=== PATIENT | female | born 1980 | race Caucasian/White ===

== ENCOUNTER 2019-05-30 22:42 | Inpatient (IN) | payer OTHER ==
[2019-05-31] MEDS: NOREPINEPHRINE 4 MG in SODIUM CHLORIDE 0.9% 250 ML IV SCH ×2 (00:48→16:17)
[2019-05-31] MEDS ORDERED: NALOXONE 0.4 MG/ML 1 ML VIAL IV PRN (00:49)
[2019-05-31 00:57] LABS: Glucose,Whole Blood 145 mg/dL (75-99)
[2019-05-31] MEDS: SODIUM CHLORIDE 0.9% 1,000 ML IV SCH ×4 (01:24→16:16)
[2019-05-31 01:32] VITALS: BMI 41.2
--- NOTE | 2019-05-31 01:59 | P.HPIM ---
History of Present Illness H&P Date: 05/31/19 Patient is a 39-year-old female with a past medical history of hypertension, and hyperlipidemia who was transferred from [facility] where she had presented earlier today with complaints of dizziness and syncopal episode. The patient reports that over the past few weeks, she has been feeling somewhat worse than her baseline and that over the past few days she has experienced multiple episodes of lightheadedness and jeff-syncope. She did notice some congestion w/ post-nasal drip and subsequent sore throat during this time. Earlier today however she was at her home sitting on her couch when she suddenly began feeling ill. She became nauseas (denied vomiting), got up to walk to the restroom when she became light-headed, held on to a nearby wall, and subsequently lost consciousness. The episode was witnessed by her mother who had told the patient that she was down for roughly 5-10 seconds. The patient denied any urinary or bowel incontinence, abnormal shaking, or tongue bites. The patient did however endorse some neck pain which had resolved prior to arrival at [facility]. The patient also denied recent urinary complaints. She also denied chest pain, SOB, palpitations, abdominal pain, diarrhea, vomiting, or headache. The patient also states that she is currently menstruating and that she had asked a tech at [facility] to remove a Tampon that she had inserted 2 hours prior. She also denied any change in her diet or oral intake recently. The patient's mother contacted EMS following her syncopal episode and the patient was taken to [facility]. The patient underwent an extensive evaluation at [facility] w/ CT head showing possible acute L sphenoid sinusitis, though otherwise unremarkable. CXR was unremarkable. Laboratory evaluation revealed a WBC count of 5, Hgb 11.3, plt 218, Na 138, K 3.8, BUN 19, Cr 1.84, glucose 140, Mg 1.2, Trop < 0.03, w/ Lactate 2.1. Rapid strep and Influenza were both negative. The patient was initially noted to be hypotensive due to dehydration w/ YONIS and was admitted to the medicine service. The patient however then developed a fever of 102.4 with persistent hypotension and tachycardia. The patient was subsequently transferred to the MICU at [facility]. I was contacted by Dr Estevez, the patient's PMD along with Dr Armenta, who requested to transfer the patient to [facility] ED. The patient was given Ceftriaxone 2g, Vancomycin, along with Dexamethasone at [facility] for concerns of meningitis. She also received 5 L of NS along with supplementation of potassium and magnesium. At time of the interview, the patient noted feeling that she is essentially back to her baseline. Review of Systems Pertinent positives and negatives as discussed in HPI, a complete review of systems was performed and all other systems are negative. Medications and Allergies Home Medications Medication Instructions Recorded Confirmed Type Atorvastatin Calcium [Lipitor] 20 PO DAILY 05/31/19 History Loratadine 10 PO DAILY 05/31/19 History NIFEdipine [NIFEdipine ER] 30 mg PO 05/31/19 History Phentermine HCl 18.7 PO DAILY 05/31/19 History Triamterene/Hydrochlorothiazid PO DAILY 05/31/19 History [Triamterene-Hctz 37.5-25 mg Tb] Allergies Allergy/AdvReac Type Severity Reaction Status Date / Time No Known Allergies Allergy Verified 05/31/19 00:36 Physical Exam Vitals: Intake and Output 05/30/19 05/30/19 05/31/19 14:59 22:59 06:59 Other: Weight 105.5 kg General: non toxic, no distress, appears at stated age, obese Derm: no unusual rashes/lesions no unusual ecchymoses, warm, dry Head: atraumatic, normocephalic, symmetric Eyes: EOMI, no lid lag, anicteric sclera, pupils equal round reactive to light ENT: Nose and ears atraumatic, no thrush, no pharyngeal erythema Neck: No thyromegaly, no cervical lymphadenopathy, trachea midline, supple Mouth: no lip lesion, mucus membranes dry Cardiovascular: S1S2 reg, tachycardic, no murmur, positive posterior tibial pulse bilateral, no edema, capillary refill less than 2 seconds Lungs: CTA bilateral, no rhonchi, no rales , no accessory muscle use Abdominal: soft, obese, nontender to palpation, no guarding, no appreciable organomegaly, normal bowel sounds Ext: no gross muscle atrophy, muscle strength 5 out of 5 in all 4 extremities grossly, no contractures, Neuro: CN II-XI grossly intact, light touch intact all 4 extremities, finger to nose within normal limits, Psych: Alert, oriented, appropriate affect Results Labs: Abnormal Lab Results - Last 24 Hours (Table) 05/31/19 Range/Units 00:45 POC Glucose (mg/dL) 145 H (75-99) mg/dL Assessment and Plan Plan: Septic shock, w/ no clear source of infection at this time -C/w MICU level of care -Continue with IV pressor support with Levophed -Continue with normal saline 200 mL an hour -Follow up blood cultures -Consider LP in am -Consider ID consult -Will c/w empiric abxs for now, including Vancomycin and Zosyn YONIS, likely secondary to septic shock -C/w IVFs for now -Monitor BMP Hypokalemia and Hypomagnasemia -Replace and Monitor Chronic conditions: HTN, HLD -Hold antihypertensives in setting of septic shock -C/w home meds DVT prophylaxis -Heparin The patient is admitted with an anticipated greater than 2 midnight stay for evaluation of septic shock. CODE STATUS: Full Code Discussed with: Patient Anticipated discharge date: 06/04/[address]: Home A total of 60 minutes was spent on the care of this complex patient more than 50% of the time was spent in counseling and care coordination.
[2019-05-31] MEDS ORDERED: VANCOMYCIN IV PER PHARMACY 1 EACH MISC MISCELLANE PRN (02:00)
[2019-05-31 02:24] LABS: Amorphous Sediment,Urine Occasional /hpf; Appearance,Urine Cloudy (Clear); Bacteria,Urine Rare /hpf; Bilirubin,Urine Negative (Negative); Blood,Urine Negative (Negative); Color,Urine Yellow; Glucose,Urine (UA) Negative (Negative); Hyaline Casts,Urine 33 /lpf (0-2); Ketones,Urine Negative (Negative); Leukocyte Esterase,Urine Small (Negative); Mucus,Urine Rare /hpf; Nitrite,Urine Negative (Negative); Protein,Urine Trace (Negative); Specific Gravity,Urine 1.012 (1.001-1.035); Squamous Epithelial Cell,Urine 2 /hpf (0-4); Urobilinogen,Urine <2.0 mg/dL (<2.0)
[2019-05-31] MEDS: PIPERACILLIN-TAZOBACTAM 3.375 GM in SODIUM CHLORIDE 0.9% 100 ML IVPB SCH ×3 (03:32→18:43)
[2019-05-31] MEDS: ACETAMINOPHEN TAB 325 MG TAB PO PRN ×2 (03:33→11:36)
[2019-05-31] MEDS ORDERED: VANCOMYCIN 1,750 MG in SODIUM CHLORIDE 0.9% 500 ML 500 ML IVPB ONE (04:00)
[2019-05-31 05:27] LABS: Calcium 7.6 mg/dL (8.4-10.2); Magnesium 1.7 mg/dL (1.6-2.3); Phosphorus 3.6 mg/dL (2.5-4.5); Potassium 4.4 mmol/L (3.5-5.1)
[2019-05-31 06:05] LABS: HCT 29.1 % (34.0-46.0); HGB 10.1 gm/dL (11.4-16.0); MCH 32.5 pg (25.0-35.0); MCHC 34.9 g/dL (31.0-37.0); MCV 93.2 fL (80.0-100.0); Mean Platelet Volume 8.5; Platelet Count 200 k/uL (150-450); RBC 3.12 m/uL (3.80-5.40); RDW 14.1 % (11.5-15.5); WBC 28.6 k/uL (3.8-10.6)
[2019-05-31] MEDS ORDERED: Magnesium Replacement Protocol 1 EACH MISC MISCELLANE PRN (06:18)
[2019-05-31] MEDS: MAGNESIUM SULFATE-D5W PMX 1 GM in DEXTROSE/WATER 1 100ML.BAG IVPB SCH ×2 (07:01→08:53)
[2019-05-31] MEDS: PANTOPRAZOLE 40 MG TABLET PO SCH (07:01)
[2019-05-31 07:03] LABS: Band Neutrophils % 29 %; Eosinophils # (M) 0.29 k/uL (0-0.7); Lymphocytes # (M) 0.57 k/uL (1.0-4.8); Monocytes # (M) 0.86 k/uL (0-1.0); Neutrophils % (M) 66 %; Nucleated Red Blood Cells 0 /100 WBC (0-0); Total Cells Counted 200
[2019-05-31 07:04] LABS: Anisocytosis (M) Present; Poikilocytosis (M) Present
--- NOTE | 2019-05-31 07:51 | XR ---
EXAMINATION TYPE: XR chest 1V DATE OF EXAM: 05/31/2019 COMPARISON: NONE HISTORY: Shortness of breath TECHNIQUE: Single frontal view of the chest is obtained. FINDINGS: There are overlying cardiac leads. Patient is rotated. There is no focal air space opacity, pleural effusion, or pneumothorax seen. The cardiac silhouette size is within normal limits. The osseous structures are intact. IMPRESSION: No acute process.
[2019-05-31] MEDS: HEPARIN SODIUM,PORCINE 5,000 UNIT/ML 1 ML VIAL SQ SCH ×2 (08:53→16:16)
--- NOTE | 2019-05-31 09:33 | CONS ---
CONSULTATION PULMONARY/CRITICAL CARE CONSULTATION: DATE OF CONSULTATION: May 31, 2019 This is a 39-year-old female who typically sees Dr. Estevez. She has a history of hypertension, hyperlipidemia, obesity, and prediabetes. The patient apparently started not feeling well yesterday. She apparently got up to use the bathroom and felt dizzy and lightheaded. She apparently had a brief episode of unconsciousness/syncope. She felt like she had to use the bathroom, but in the end did not need to use the bathroom. She also apparently developed a fever. She had been having some nasal congestion and drainage. No urinary complaints. No diarrhea. She also complained of a bit of a sore throat and possible tonsillitis/strep pharyngitis. She asked for some antibiotics but never actually started them. Because of the constellation of symptoms including the headache, the fever, sore throat, nasal congestion, nasal drainage, etc., she ended up in the emergency room over at [facility]. Apparently Dr. Armenta was called. Dr. Armenta recommended transfer to our ICU. He did call me last night and we discussed the case. The patient was accepted by the [facility]. Dr. Murphy actually saw the patient last night. His input was appreciated and H and P is already in the chart. She did have a head CT which showed nothing acute. She did have a left sphenoid sinusitis. Chest x-ray was normal. Apparently, her rapid strep screen was negative. Her influenza studies were negative as well. She was a bit hypotensive and she got IV fluids. She also initially got vancomycin and ceftriaxone. She got Decadron as well. She is resting comfortably in our ICU. She is feeling much better. She is on room air. Her IV is 0.9 at 20 mL an hour. She is getting Levophed at 3 mcg/minute. She was adequately fluid resuscitated there. PAST MEDICAL HISTORY: Her past medical history includes hypertension, hyperlipidemia and prediabetes. HOME MEDICATIONS: Her home medications include Tylenol, triamterene/hydrochlorothiazide, phentermine hydrochloride, loratadine, and Lipitor. SOCIAL HISTORY: Negative for tobacco use. ALLERGIES: She has no known allergies. FAMILY HISTORY: Noncontributory. Mother and father are healthy. OCCUPATIONAL HISTORY: Noncontributory. She apparently had been completing her menses. She had a tampon in place. She apparently did ask the nursing staff at [facility] to help her remove it and it was removed. REVIEW OF SYSTEMS: CONSTITUTIONAL: Weakness, lightheadedness, dizziness. NEUROLOGIC: Brief episode of syncope. HEENT: Nasal congestion, drainage, sore throat, swollen tonsils. CARDIOVASCULAR: Negative. PULMONARY: Negative. GI: Negative. : Negative. RHEUMATOLOGIC: Negative. IMMUNOLOGIC: Negative. ENDOCRINOLOGIC: Negative. DERMATOLOGIC: Negative. PHYSICAL EXAMINATION: VITAL SIGNS: Vital signs are reviewed. Temperature is 97.7, heart rate 87, respiratory rate 12, blood pressure 96/64, mean 74, saturation 97%. GENERAL: She is sitting up in bed. No acute distress. No respiratory distress. No headache. No neck stiffness. No photophobia. HEENT: Examination is grossly unremarkable. Mucous membranes are moist. Posterior oropharynx is normal, but her tonsils are quite enlarged. The left tonsil may have a bit of exudate on it. NECK: Supple. Full range of motion. No adenopathy or thyromegaly. Neck veins are flat. CARDIOVASCULAR: Examination reveals regular rhythm and rate. Heart rate mid 80s. S1, S2 normal. No murmur. LUNGS: Are clear. Breath sounds equal. ABDOMEN: Obese. Bowel sounds are heard. EXTREMITIES: Are intact. No cyanosis, clubbing, or edema. SKIN: Without rash. NEUROLOGIC: Examination is nonfocal. Microbiologic data is pending or negative. White count 28.6, hemoglobin 10.1, hematocrit 29.1, platelet count 200,000. Sodium and potassium were 139 and 4.4. Chloride 108, CO2 is 20. Anion gap is 11. BUN and creatinine were 22 and 1.74. This is consistent with a non-anion gap metabolic acidosis and it is probably related to the mild acute kidney injury/renal dysfunction. The rest of the labs look okay. Urine is yellow and cloudy. Trace protein, small positive leukocyte esterase, 10 WBCs, rare WBC clumps and there are some rare bacteria. This could reflect an evolving urinary tract infection. Chest x-ray was normal. MEDICATIONS: Current medications are reviewed. She is on Tylenol, subcu heparin, magnesium replacement, Narcan, a small amount of Levophed at 3 mcg/minute, Protonix, Zosyn, vancomycin, and her saline IV. ASSESSMENT: 1. Mild febrile illness with possible sepsis of unclear etiology. Sources could include left sphenoid sinusitis, pharyngitis/tonsillitis, urinary tract infection, or viral syndrome. Doubt meningitis. 2. History of hyperlipidemia. 3. Hypertension. 4. Prediabetes. 5. Obesity. PLAN: The patient states that she started not feeling well after she started the phentermine hydrochloride which is Adipex-P. That will not be given to her here in the hospital. We will see if we cannot wean her off the norepinephrine. Currently, she is on good antibiotics. I did explain to her that we may or may not find a source of infection. Additional recommendations and suggestions are forthcoming. The tampon was removed. That is a good thing. We will continue to follow closely. N.p.o. for now. She does have GI and DVT prophylaxis. MMODL / IJN: [id number] /
--- NOTE | 2019-05-31 11:56 | ECHOF ---
Referral Reason:syncope MEASUREMENTS -------- HEIGHT: 160.0 cm WEIGHT: 105.2 kg BP: RVIDd: 3.3 cm (< 3.3) IVSd: 1.1 cm (0.6 - 1.1) LVIDd: 3.6 cm (3.9 - 5.3) LVPWd: 1.4 cm (0.6 - 1.1) IVSs: 1.3 cm LVIDs: 2.5 cm LVPWs: 1.5 cm LA Diam: 3.1 cm (2.7 - 3.8) LAESV Index (A-L): 18.19 ml/m Ao Diam: 2.6 cm (2.0 - 3.7) AV Cusp: 1.6 cm (1.5 - 2.6) LA Diam: 3.2 cm (2.7 - 3.8) MV EXCURSION: 14.924 mm (> 18.000) MV EF SLOPE: 73 mm/s (70 - 150) EPSS: 0.4 cm MV E Vito: 0.84 m/s MV DecT: 118 ms MV A Vito: 0.91 m/s MV E/A Ratio: 0.92 RAP: 5.00 mmHg RVSP: 25.10 mmHg FINDINGS -------- Sinus rhythm. This was a technically adequate study. LV size, wall thickness and systolic function are normal, with an EF greater than 55%. The left salena tricular size is normal. The diastolic filling pattern is normal for the age of the patient 6.79. The right ventricle is normal in size. Normal LA size by volume 22+/-6 ml/m2. The right atrial size is normal. The aortic valve is trileaflet, and appears structurally normal. No aortic stenosis or regurgitation. The mitral valve is normal. Mild mitral regurgitation is present. The tricuspid valve appears structurally normal. Mild tricuspid regurgitation present. There is n o evidence of pulmonary hypertension. The right ventricular systolic pressure, as measured by Doppl er, is 25.10mmHg. There is no pulmonic regurgitation present. The aortic root size is normal. There is no pericardial effusion. CONCLUSIONS -------- 1. Sinus rhythm. 2. This was a technically adequate study. 3. LV size, wall thickness and systolic function are normal, with an EF greater than 55%. 4. The left ventricular size is normal. 5. The diastolic filling pattern is normal for the age of the patient 6.79 6. Normal LA size by volume 22+/-6 ml/m2. 7. The aortic valve is trileaflet, and appears structurally normal. No aortic stenosis or regurgitati on. 8. Mild mitral regurgitation is present. 9. Mild tricuspid regurgitation present. 10. There is no evidence of pulmonary hypertension. 11. There is no pulmonic regurgitation present. 12. The aortic root size is normal. 13. There is no pericardial effusion. HEAD PUMPER: Torrie Garcia RDCS
--- NOTE | 2019-05-31 18:11 | P.PN ---
Progress Note - Text Progress Note Date: 05/31/19 (delayed charting patient seen at 0915) Hospitalist Interval Note Patient seen and examined at bedside. Complains of a sore throat, states that she gets strep throat at least 1-2 times a year and this feels similar. Also having some right-sided facial pain and fullness. Denies any neck pain, headache, changes in vision, photophobia or phonophobia. No chest pain or shortness of breath. No back pain. Vital signs reviewed General: non toxic, no distress, appears at stated age Derm: warm, dry Head: atraumatic, normocephalic, symmetric Eyes: EOMI, no lid lag, anicteric sclera Mouth: no lip lesion, mucus membranes moist Cardiovascular: S1S2 reg, no murmur, positive posterior tibial pulse bilateral, Lungs: CTA bilateral, no rhonchi, no rales , no accessory muscle use Abdominal: soft, nontender to palpation, no guarding, no appreciable organomegaly Ext: no gross muscle atrophy, no edema, no contractures Neuro: CN II-XI grossly intact, no focal neuro deficits, Negative Kernig's, negative Brudzinski's Psych: Alert, oriented, appropriate affect Assessment/Plan: Septic shock, no clear source of infection - low clinical suspicion for meningitis - repeat rapdi strep and throat culture - wean levo as able - follow BC - Continue with zosyn YONIS Hypokalemia Hypomagnesemia HTN HLD This is an update note for patient , for full note on 05/31 see H and P. There is no charge associated with this note.
[2019-05-31] MEDS: VANCOMYCIN 1,750 MG in SODIUM CHLORIDE 0.9% 500 ML 500 ML IVPB SCH (18:43)
[2019-06-01] MEDS: ACETAMINOPHEN TAB 325 MG TAB PO PRN ×3 (00:03→19:23)
[2019-06-01] MEDS: HEPARIN SODIUM,PORCINE 5,000 UNIT/ML 1 ML VIAL SQ SCH ×3 (00:04→15:12)
[2019-06-01] MEDS: SODIUM CHLORIDE 0.9% 1,000 ML IV SCH ×5 (00:04→17:01)
[2019-06-01] MEDS: PIPERACILLIN-TAZOBACTAM 3.375 GM in SODIUM CHLORIDE 0.9% 100 ML IVPB SCH ×3 (04:07→20:36)
[2019-06-01 05:30] LABS: Basophils % (A) 0 %; Eosinophils # (A) 0.4 k/uL (0-0.7); Eosinophils % (A) 2 %; HCT 28.6 % (34.0-46.0); HGB 9.5 gm/dL (11.4-16.0); Lymphocytes # (A) 1.4 k/uL (1.0-4.8); Lymphocytes % (A) 8 %; MCHC 33.3 g/dL (31.0-37.0); MCV 93.1 fL (80.0-100.0); Mean Platelet Volume 8.1; Monocytes # (A) 0.5 k/uL (0-1.0); Monocytes % (A) 3 %; Neutrophils # (A) 16.4 k/uL (1.3-7.7); Neutrophils % (A) 87 %; Platelet Count 192 k/uL (150-450); RBC 3.07 m/uL (3.80-5.40); RDW 13.7 % (11.5-15.5); WBC 18.9 k/uL (3.8-10.6)
[2019-06-01 05:47] LABS: Calcium 7.6 mg/dL (8.4-10.2); Magnesium 2.1 mg/dL (1.6-2.3); Potassium 4.3 mmol/L (3.5-5.1)
--- NOTE | 2019-06-01 08:04 | P.PN ---
Subjective Progress Note Date: 06/01/19 Principal diagnosis: Febrile illness of unclear etiology. This is a very pleasant 39-year-old female patient with history of hyperlipidemia, hypertension, prediabetes. She had developed fever weakness and a syncopal episode and was brought here to the emergency room for the same. She was admitted to the intensive care unit [facility] from [facility] emergency room. Computed tomography scan of the brain was negative. She did have a left sphenoid sinusitis. Chest x-ray was clear. Rapid strep screen was negative. Influenza screen was negative. She did have fluid resuscitation for hypotension. She was initiated on vancomycin and ceftriaxone. She is seen a gain today in follow-up in the ICU. She is awake and alert in no acute distress. No shortness of breath, cough or congestion. She is on room air. She is still on norepinephrine at 2 mcg/m. She has 0.9 normal saline at 200 ML's per hour. She is now on vancomycin and Zosyn. He is feeling a bit better today as compared to yesterday. Throat culture is pending. White count 18.9. Hemoglobin 9.5. Creatinine 1.19. Heparin subcu for DVT prophylaxis. Echocardiogram did not reveal any significant abnormalities. No evidence of vegetation. Objective - Vital Signs Vital signs: Vital Signs Temp 98.9 F 06/01/19 04:00 Pulse 87 06/01/19 07:00 Resp 19 06/01/19 07:00 BP 102/63 06/01/19 07:00 Pulse Ox 92 L 06/01/19 07:00 Intake & Output 05/31/19 06/01/19 06/01/19 18:59 06:59 18:59 Intake Total 2804.743 2909 339.422 Output Total 2004 2310 200 Balance 799.743 599 139.422 Weight 107.8 kg Intake: IV 2625 2909 225 Magnesium Sulfate-D5w Pmx 200 1 gm In Dextrose/Water 1 100ml.bag @ 100 mls/hr IVPB Q1H JANAE Rx#: [id number] Piperacillin-Tazobactam 3 25 175 25 .375 gm In Sodium Chloride 0.9% 100 ml @ 25 mls/hr IVPB Q8H JANAE Rx#: [id number] Sodium Chloride 0.9% 1, 2400 2400 200 000 ml @ 200 mls/hr IV . Q5H JANAE Rx#:[id number] Vancomycin 1,750 mg In 334 Sodium Chloride 0.9% 500 ml 500 ml @ 167 mls/hr IVPB Q24H JANAE Rx#: [id number] Intake, IV Titration 179.743 114.422 Amount Norepinephrine 4 mg In 179.743 114.422 Sodium Chloride 0.9% 250 ml @ 0.05 MCG/KG/MIN 20. 098 mls/hr IV .[id number] JANAE Rx#:[id number] Output: Urine 2004 2310 200 Other: Voiding Method Indwelling Catheter Indwelling Catheter - Exam GENERAL EXAM: Alert, pleasant 39-year-old female patient, comfortable in no apparent distress on room air. HEAD: Normocephalic. EYES: Normal reaction of pupils, equal size. NOSE: Clear with pink turbinates. THROAT: Erythema. Large tonsils, exudate on the left. NECK: No masses, no JVD. CHEST: No chest wall deformity. LUNGS: Equal air entry with no crackles, wheeze, rhonchi or dullness. CVS: S1 and S2 normal with no audible murmur, regular rhythm. ABDOMEN: No hepatosplenomegaly, normal bowel sounds, no guarding or rigidity. SPINE: No scoliosis or deformity SKIN: No rashes CENTRAL NERVOUS SYSTEM: No focal deficits, tone is normal in all 4 extremities. EXTREMITIES: There is no peripheral edema. No clubbing, no cyanosis. Peripheral pulses are intact. - Labs CBC & Chem 7: 06/01/19 05:14 06/01/19 05:14 Labs: Abnormal Lab Results - Last 24 Hours (Table) 06/01/19 06/01/19 Range/Units 05:14 05:14 WBC 18.9 H (3.8-10.6) k/uL RBC 3.07 L (3.80-5.40) m/uL Hgb 9.5 L (11.4-16.0) gm/dL Hct 28.6 L (34.0-46.0) % Neutrophils # 16.4 H (1.3-7.7) k/uL Chloride 112 H (98-107) mmol/L Creatinine 1.19 H (0.52-1.04) mg/dL Calcium 7.6 L (8.4-10.2) mg/dL Phosphorus 2.0 L (2.5-4.5) mg/dL Microbiology - Last 24 Hours (Table) 05/31/19 09:50 Throat Culture - Preliminary Throat 05/31/19 09:50 Group A Strep Throat Culture - Preliminary Throat Assessment and Plan Assessment: Impression: #1 Febrile illness with possible sepsis of unclear etiology. Within the differential include left sphenoid sinusitis, pharyngitis/tonsillitis, urinary tract infection or viral syndrome. Doubt meningitis. #2 Hypotension requiring norepinephrine and fluid resuscitation secondary to above. #3 Hyperlipidemia. #4 History of hypertension. #5 Prediabetes. Plan: The patient was seen and evaluated by Dr. Zarate. She is improved today as compared to yesterday. We'll continue with norepinephrine as needed to maintain mean arterial pressure 65 or greater. Continue vancomycin and Zosyn. Blood cultures pending from [facility]. Throat cultures pending. Continue with fluid resuscitation at 0.9 normal saline at 200 ML's per hour. Continue to monitor her here closely in the intensive care unit for now. We'll continue to follow make further recommendations based on her clinical status. I, the cosigning physician, performed a history & physical examination of the patient. Lungs sounds are clear. Maintaining good O2 saturations in the 90s on room air. I discussed the assessment and plan of care with my nurse practitioner, Kelly Ray. I attest to the above note as dictated by her.
[2019-06-01] MEDS: PANTOPRAZOLE 40 MG TABLET PO SCH (08:14)
--- NOTE | 2019-06-01 09:38 | P.PN ---
Subjective Progress Note Date: 06/01/19 Principal diagnosis: sore throat Patient is a 39-year-old female with a past medical history of hypertension, dyslipidemia, multiple prior strep throat infections, and ALLERGIC rhinitis who initially presented to [facility] for dizziness syncopal episode. She been having multiple presyncopal episodes over several days associated with postnasal drip and sore throat. At [facility] she underwent an evaluation. CT of the head showed left sphenoid sinusitis, chest x-ray unremarkable, rapid strep negative, influenza negative. Laboratory evaluation showed an elevated white blood cell count, low hemoglobin 11.3, elevated creatinine at 1.84, and low magnesium at 1.2. She also had a mildly elevated lactic acid at 2.1. She was found to be hypotensive and dehydrated with acute kidney injury. She was started on fluids and admitted to the medicine service. After admission she developed a fever of 102.4 with persistent hypotension and tachycardia. Due to her decompensation Dr. Armenta was contacted who recommended transfer to the ICU here at [facility]. She had been given 2 g of ceftriaxone, vancomycin, and dexamethasone at [facility] for concerns of meningitis due to pain. She received a total of 5 L of normal saline along with magnesium and potassium supplementation. On arrival here she was started on norepinephrine. Repeat rapid strep was done which was negative and throat cultures were obtained. Antibiotics were broadened to Zosyn and vancomycin. Clinical signs and symptoms were not consistent with meningitis and therefore lumbar puncture was not obtained. Urinalysis is negative. Critical care was consulted. She was able to come off of norepinephrine by the morning of 06/01. Patient seen and examined at bedside. Still is having some right-sided facial pain. Complains also of sore throat which is less than yesterday. Tolerating a diet. Denies any chest pain, shortness breath, nausea, or vomiting. Objective - Vital Signs Vital signs: Vital Signs Temp 98.9 F 06/01/19 04:00 Pulse 87 06/01/19 07:00 Resp 19 06/01/19 07:00 BP 102/63 06/01/19 07:00 Pulse Ox 92 L 06/01/19 07:00 Intake & Output 05/31/19 06/01/19 06/01/19 18:59 06:59 18:59 Intake Total 2804.743 2909 339.422 Output Total 2004 2310 200 Balance 799.743 599 139.422 Weight 107.8 kg Intake: IV 2625 2909 225 Magnesium Sulfate-D5w Pmx 200 1 gm In Dextrose/Water 1 100ml.bag @ 100 mls/hr IVPB Q1H JANAE Rx#: [id number] Piperacillin-Tazobactam 3 25 175 25 .375 gm In Sodium Chloride 0.9% 100 ml @ 25 mls/hr IVPB Q8H JANAE Rx#: [id number] Sodium Chloride 0.9% 1, 2400 2400 200 000 ml @ 200 mls/hr IV . Q5H JANAE Rx#:[id number] Vancomycin 1,750 mg In 334 Sodium Chloride 0.9% 500 ml 500 ml @ 167 mls/hr IVPB Q24H JANAE Rx#: [id number] Intake, IV Titration 179.743 114.422 Amount Norepinephrine 4 mg In 179.743 114.422 Sodium Chloride 0.9% 250 ml @ 0.05 MCG/KG/MIN 20. 098 mls/hr IV .[id number] JANAE Rx#:[id number] Output: Urine 2004 2310 200 Other: Voiding Method Indwelling Catheter Indwelling Catheter - Exam General: non toxic, no distress, appears at stated age, obese Derm: warm, dry Head: atraumatic, normocephalic, symmetric Eyes: EOMI, no lid lag, anicteric sclera Mouth: no lip lesion, mucus membranes moist, + PND, enlarged tonsils without exudates. Cardiovascular: S1S2 reg, no murmur, positive posterior tibial pulse bilateral, Lungs: CTA bilateral, no rhonchi, no rales , no accessory muscle use Abdominal: soft, nontender to palpation, no guarding, no appreciable organomegaly Ext: no gross muscle atrophy, no edema, no contractures Neuro: CN II-XI grossly intact, no focal neuro deficits Psych: Alert, oriented, appropriate affect - Labs CBC & Chem 7: 06/01/19 05:14 06/01/19 05:14 Labs: Abnormal Lab Results - Last 24 Hours (Table) 06/01/19 06/01/19 Range/Units 05:14 05:14 WBC 18.9 H (3.8-10.6) k/uL RBC 3.07 L (3.80-5.40) m/uL Hgb 9.5 L (11.4-16.0) gm/dL Hct 28.6 L (34.0-46.0) % Neutrophils # 16.4 H (1.3-7.7) k/uL Chloride 112 H (98-107) mmol/L Creatinine 1.19 H (0.52-1.04) mg/dL Calcium 7.6 L (8.4-10.2) mg/dL Phosphorus 2.0 L (2.5-4.5) mg/dL Microbiology - Last 24 Hours (Table) 05/31/19 09:50 Throat Culture - Preliminary Throat 05/31/19 09:50 Group A Strep Throat Culture - Preliminary Throat Assessment and Plan Assessment: Septic shock, source of infection likely pharyngitis vs acute sphenoid sinusitis, vs viral - rapid strep, flu, cxr, UA negative. - claritin, afrin X 1, flonase - head CT - IVF - throat culture pending - follow BC - Continue with zosyn/ vanco YONIS, due to hypotnesion and dehydratio - IVF - improving - Limit vanco/zosyn due to added nephro toxic effects. plan to down titrate in AM Syncope - likely due to hypotension - Tele - echo unremarkable - no phenteramine on discharge HLD - resume statin Obesity with BMI 42.1 - structured outpatient weight loss Hypokalemia, resolved Hypomagnesemia, resolved Chronic: HTN DVT prophylaxis: Heparin Discussed with: Patient, , nursing Anticipated discharge: 1-[address]: home A total of 35 minutes was spent on the care of this complex patient more than 50% of the time was spent in counseling and care coordination.
[2019-06-01] MEDS: LORATADINE 10 MG TAB PO SCH (10:48)
[2019-06-01] MEDS: FLUTICASONE 50MCG/SPRAY NASAL 16GM EA NOSTRIL SCH (10:49)
[2019-06-01] MEDS: ATORVASTATIN 20 MG TAB PO SCH (10:49)
[2019-06-01] MEDS ORDERED: OXYMETAZOLINE 0.05% NASL SPRAY 1 SPRAY BOTTLE NASAL ONE (11:00)
[2019-06-01] MEDS: VANCOMYCIN 1,750 MG in SODIUM CHLORIDE 0.9% 500 ML 500 ML IVPB SCH (17:02)
[2019-06-01] MEDS: NOREPINEPHRINE 4 MG in SODIUM CHLORIDE 0.9% 250 ML IV SCH ×2 (21:13→21:14)
[2019-06-02] MEDS: HEPARIN SODIUM,PORCINE 5,000 UNIT/ML 1 ML VIAL SQ SCH ×3 (00:25→16:52)
[2019-06-02] MEDS: PIPERACILLIN-TAZOBACTAM 3.375 GM in SODIUM CHLORIDE 0.9% 100 ML IVPB SCH ×3 (03:39→20:14)
[2019-06-02] MEDS: SODIUM CHLORIDE 0.9% 1,000 ML IV SCH ×3 (03:40→11:50)
[2019-06-02 04:57] LABS: Calcium 7.8 mg/dL (8.4-10.2); Potassium 3.8 mmol/L (3.5-5.1)
[2019-06-02 05:04] LABS: Basophils % (A) 0 %; Eosinophils # (A) 0.3 k/uL (0-0.7); Eosinophils % (A) 2 %; HCT 27.1 % (34.0-46.0); HGB 9.3 gm/dL (11.4-16.0); Lymphocytes # (A) 1.5 k/uL (1.0-4.8); Lymphocytes % (A) 11 %; MCH 31.8 pg (25.0-35.0); MCHC 34.3 g/dL (31.0-37.0); MCV 92.7 fL (80.0-100.0); Mean Platelet Volume 8.5; Monocytes # (A) 0.3 k/uL (0-1.0); Monocytes % (A) 2 %; Neutrophils # (A) 10.9 k/uL (1.3-7.7); Neutrophils % (A) 83 %; Platelet Count 181 k/uL (150-450); RBC 2.92 m/uL (3.80-5.40); RDW 14.4 % (11.5-15.5); WBC 13.1 k/uL (3.8-10.6)
--- NOTE | 2019-06-02 06:35 | XR ---
EXAMINATION TYPE: XR chest 1V portable DATE OF EXAM: 06/02/2019 HISTORY: sob. REFERENCE: Previous study dated 05/31/2019. FINDINGS: There is minimal blunting of the left CP angle. I suspect tiny effusion. The heart is enlar ged. There may be some minimal airspace disease the left lung base. The right lung is clear. IMPRESSION: MINIMAL LEFT BASILAR AIRSPACE DISEASE WITH A SMALL, CONCOMITANT EFFUSION.
--- NOTE | 2019-06-02 07:44 | PN ---
PROGRESS NOTE DATE OF SERVICE: June 02, 2019 This is a 39-year-old female admitted on May 31. She has a history of hyperlipidemia, hypertension, and pre-diabetes. She developed an episode of fever, weakness and near syncopal episode. She was brought to the emergency room initially to [facility]. She was thought to possibly have meningitis. CT scan of the brain was negative save for a left sphenoid sinusitis. Chest x-ray was normal. Rapid strep screen was negative. Influenza studies were negative. She received fluid resuscitation and antibiotics in the form of vancomycin and ceftriaxone. Thus far, all her culture data is negative. She is feeling better. She is currently on 2 L nasal cannula. She is getting a 0.9 IV at 200 mL an hour to be turned down to 75 mL an hour. She is currently on vancomycin and Zosyn. Negative chest x-ray today. We are going to DC her [place]. We are going to drop her IV fluids as mentioned above. We are going to send her to the medical-surgical floor. The patient apparently did develop a little bit of chest pain with deep breathing this morning. That is why the oxygen was applied. It sounds more like pleuritic type pain. Other than that though, she is improving. PHYSICAL EXAMINATION: VITAL SIGNS: Current vital signs are reviewed. Her temperature is 98 and she has been afebrile. Heart rate 98, respiratory rate 24, blood pressure 112/80, mean 90, room air saturation 94%. 2 L saturation 97%. Appears in no acute distress. No respiratory distress. HEENT examination is grossly unremarkable. Mucous membranes are moist. Nasal O2 noted. NECK: Supple. Full range of motion. No adenopathy or thyromegaly. Neck veins are flat. CARDIOVASCULAR examination reveals regular rhythm and rate. Heart rate about 90 beats per minute. It is regular. S1, S2 normal. No S3, S4, or murmur. LUNGS: Reveal clear breath sounds. No wheezes, rhonchi, or crackles. ABDOMEN: Soft. Bowel sounds are heard. EXTREMITIES are intact. No cyanosis, clubbing, or edema. SKIN: Without rash. NEUROLOGIC examination is completely normal. LABS: Reviewed. White count has come down from 28.6 to 13.1, hemoglobin 9.3, hematocrit 27.1, platelet count 181,000. Sodium 141, potassium 3.8, chloride 113, CO2 is 23, BUN and creatinine were 11 and 1.10. Influenza studies were negative. Rapid strep screen was negative. Urine suggested possible urinary tract infection, but thus far microbiology is negative. Chest x-ray may show either some atelectasis or infiltrate at the left base. MEDICATIONS: Reviewed. She is on Tylenol, Lipitor, Flonase nasal spray, subcu heparin, loratadine, magnesium replacement, Narcan, Protonix, Zosyn, vancomycin and her IV. ASSESSMENT: 1. Febrile illness, of unclear etiology. Mild sepsis as well. She might have a sphenoid sinusitis versus pharyngitis, tonsillitis, urinary tract infection or viral syndrome. Doubt meningitis. More recently chest x-ray shows either some atelectasis or patchy infiltrate at the left lung base. This may be developing pneumonia. 2. Hypotension, which required fluid resuscitation and norepinephrine, resolved. 3. Hyperlipidemia. 4. Hypertension. 5. Prediabetes. 6. Obesity. PLAN: The patient's culture data is reviewed. Thus far everything is negative. Of note is the fact that the chest x-ray today which was normal on admission does show either atelectasis or patchy infiltrate at the left lung base. She does admit to pleuritic- type chest pain on deep inspiration. No respiratory distress. Not coughing up any phlegm. She remains on good antibiotics. All her culture data thus far is negative. We will continue to follow. We did make the patient a med/surg patient. IV was turned down from 200 to 75 mL an hour. We will discontinue the [place]. The chest x-ray was ordered today. We will continue to follow closely. MMODL / IJN: [id number] /
[2019-06-02] MEDS: LORATADINE 10 MG TAB PO SCH (08:53)
[2019-06-02] MEDS: FLUTICASONE 50MCG/SPRAY NASAL 16GM EA NOSTRIL SCH (08:55)
[2019-06-02] MEDS: ACETAMINOPHEN TAB 325 MG TAB PO PRN ×2 (08:55→18:18)
[2019-06-02] MEDS: VANCOMYCIN 1,750 MG in SODIUM CHLORIDE 0.9% 500 ML 500 ML IVPB SCH (08:57)
[2019-06-02] MEDS: ATORVASTATIN 20 MG TAB PO SCH (09:10)
[2019-06-02] MEDS: PANTOPRAZOLE 40 MG TABLET PO SCH (09:10)
[2019-06-02] MEDS ORDERED: OXYMETAZOLINE 0.05% NASL SPRAY 1 SPRAY BOTTLE NASAL STA (10:00)
--- NOTE | 2019-06-02 11:20 | P.PN ---
Subjective Progress Note Date: 06/02/19 Principal diagnosis: sore throat Patient is a 39-year-old female with a past medical history of hypertension, dyslipidemia, multiple prior strep throat infections, and ALLERGIC rhinitis who initially presented to [facility] for dizziness syncopal episode. She been having multiple presyncopal episodes over several days associated with postnasal drip and sore throat. At [facility] she underwent an evaluation. CT of the head showed left sphenoid sinusitis, chest x-ray unremarkable, rapid strep negative, influenza negative. Laboratory evaluation showed an elevated white blood cell count, low hemoglobin 11.3, elevated creatinine at 1.84, and low magnesium at 1.2. She also had a mildly elevated lactic acid at 2.1. She was found to be hypotensive and dehydrated with acute kidney injury. She was started on fluids and admitted to the medicine service. After admission she developed a fever of 102.4 with persistent hypotension and tachycardia. Due to her decompensation Dr. Armenta was contacted who recommended transfer to the ICU here at [facility]. She had been given 2 g of ceftriaxone, vancomycin, and dexamethasone at [facility] for concerns of meningitis due to pain. She received a total of 5 L of normal saline along with magnesium and potassium supplementation. On arrival here she was started on norepinephrine. Repeat rapid strep was done which was negative and throat cultures were obtained. Antibiotics were broadened to Zosyn and vancomycin. Clinical signs and symptoms were not consistent with meningitis and therefore lumbar puncture was not obtained. Urinalysis is negative. Critical care was consulted. She was able to come off of norepinephrine by the morning of 06/01. She continued to progress well. Patient seen and examined at bedside. Still with HAWLEY and right sided facial pain, still with some tonsilar pain, no chest pain, shortness of breath, + nausea X 1. No diarrhea, no constipation. Objective - Vital Signs Vital signs: Vital Signs Temp 98.4 F 06/02/19 08:00 Pulse 101 H 06/02/19 08:00 Resp 21 06/02/19 08:00 BP 127/87 06/02/19 10:00 Pulse Ox 93 L 06/02/19 08:00 Intake & Output 06/01/19 06/02/19 06/02/19 18:59 06:59 18:59 Intake Total 3369.422 2980 75 Output Total 1865 1650 600 Balance 9964.227 4489 -525 Weight 107.8 kg Intake: IV 1825 2500 75 Piperacillin-Tazobactam 3 125 100 .375 gm In Sodium Chloride 0.9% 100 ml @ 25 mls/hr IVPB Q8H JANAE Rx#: [id number] Sodium Chloride 0.9% 1, 1200 2400 75 000 ml @ 75 mls/hr IV . [id number] JANAE Rx#:[id number] Vancomycin 1,750 mg In 500 Sodium Chloride 0.9% 500 ml 500 ml @ 167 mls/hr IVPB Q24H JANAE Rx#: [id number] Intake, IV Titration 1114.422 Amount Norepinephrine 4 mg In 114.422 Sodium Chloride 0.9% 250 ml @ 0.05 MCG/KG/MIN 20. 098 mls/hr IV .[id number] JANAE Rx#:[id number] Sodium Chloride 0.9% 1, 1000 000 ml @ 75 mls/hr IV . [id number] JANAE Rx#:[id number] Oral 430 480 Output: Urine 1865 1650 600 Other: Voiding Method Indwelling Catheter Indwelling Catheter - Exam General: non toxic, no distress, appears at stated age, obese Derm: warm, dry Head: atraumatic, normocephalic, symmetric Eyes: EOMI, no lid lag, anicteric sclera Mouth: no lip lesion, mucus membranes moist, + enlarged tonsils without exudate s. Cardiovascular: S1S2 reg, no murmur, positive posterior tibial pulse bilateral, Lungs: CTA bilateral, no rhonchi, no rales , no accessory muscle use Abdominal: soft, nontender to palpation, no guarding, no appreciable organomegaly Ext: no gross muscle atrophy, 1+ edema, no contractures Neuro: CN II-XI grossly intact, no focal neuro deficits Psych: Alert, oriented, appropriate affect - Labs CBC & Chem 7: 06/02/19 03:42 06/02/19 03:42 Labs: Abnormal Lab Results - Last 24 Hours (Table) 06/02/19 06/02/19 Range/Units 03:42 03:42 WBC 13.1 H (3.8-10.6) k/uL RBC 2.92 L (3.80-5.40) m/uL Hgb 9.3 L (11.4-16.0) gm/dL Hct 27.1 L (34.0-46.0) % Neutrophils # 10.9 H (1.3-7.7) k/uL Chloride 113 H (98-107) mmol/L Creatinine 1.10 H (0.52-1.04) mg/dL Glucose 117 H (74-99) mg/dL Calcium 7.8 L (8.4-10.2) mg/dL Assessment and Plan Assessment: Septic shock, source of infection likely pharyngitis vs acute sphenoid sinusitis, vs viral - rapid strep, flu, cxr, UA negative. - claritin, afrin second dose, flonase - head CT - IVF - throat culture pending - follow BC - Continue with zosyn/ vanco YONIS, due to hypotnesion and dehydration, resolved - stop IVF - Repeat BMP in AM - improving - Limit vanco/zosyn due to added nephro toxic effects. plan to down titrate in AM Syncope - likely due to hypotension - Tele - echo unremarkable - no phenteramine on discharge HLD - resume statin Obesity with BMI 42.1 - structured outpatient weight loss Hypokalemia, resolved Hypomagnesemia, resolved Chronic: HTN DVT prophylaxis: Heparin Discussed with: Patient, , nursing Anticipated discharge:in AM Anticipated discharge place: home A total of 30 minutes was spent on the care of this complex patient more than 50% of the time was spent in counseling and care coordination.
[2019-06-02] MEDS: HYDROCHLOROTHIAZIDE 25 MG TAB PO SCH (11:54)
[2019-06-03] MEDS: HEPARIN SODIUM,PORCINE 5,000 UNIT/ML 1 ML VIAL SQ SCH ×2 (00:12→08:40)
[2019-06-03] MEDS: VANCOMYCIN 1,750 MG in SODIUM CHLORIDE 0.9% 500 ML 500 ML IVPB SCH (00:35)
[2019-06-03] MEDS: ACETAMINOPHEN TAB 325 MG TAB PO PRN (03:26)
[2019-06-03] MEDS: PIPERACILLIN-TAZOBACTAM 3.375 GM in SODIUM CHLORIDE 0.9% 100 ML IVPB SCH ×2 (03:28→10:59)
[2019-06-03 07:33] VITALS: RESP 16
[2019-06-03] MEDS: PANTOPRAZOLE 40 MG TABLET PO SCH (08:40)
[2019-06-03] MEDS: HYDROCHLOROTHIAZIDE 25 MG TAB PO SCH (08:40)
[2019-06-03] MEDS: FLUTICASONE 50MCG/SPRAY NASAL 16GM EA NOSTRIL SCH (08:40)
[2019-06-03] MEDS: LORATADINE 10 MG TAB PO SCH (08:40)
[2019-06-03] MEDS: ATORVASTATIN 20 MG TAB PO SCH (08:40)
[2019-06-03] MEDS ORDERED: AMOXIC-POT CLAV 875-125MG 1 EACH TAB PO SCH (12:45)
--- NOTE | 2019-06-03 15:35 | P.PN ---
Subjective Progress Note Date: 06/03/19 Principal diagnosis: Febrile illness of unclear etiology This is a very pleasant 39-year-old female patient with history of hyperlipidemia, hypertension, prediabetes. She had developed fever weakness and a syncopal episode and was brought here to the emergency room for the same. She was admitted to the intensive care unit [facility] from [facility] emergency room. Computed tomography scan of the brain was negative. She did have a left sphenoid sinusitis. Chest x-ray was clear. Rapid strep screen was negative. Influenza screen was negative. She did have fluid resuscitation for hypotension. She was initiated on vancomycin and ceftriaxone. She is seen aga in today in follow-up in the ICU. She is awake and alert in no acute distress. No shortness of breath, cough or congestion. She is on room air. She is still on norepinephrine at 2 mcg/m. She has 0.9 normal saline at 200 ML's per hour. She is now on vancomycin and Zosyn. He is feeling a bit better today as compared to yesterday. Throat culture is pending. White count 18.9. Hemoglobin 9.5. Creatinine 1.19. Heparin subcu for DVT prophylaxis. Echocardiogram did not reveal any significant abnormalities. No evidence of vegetation. On 06/03/2019 patient seen in follow-up on medical surgical floor. She is awake and alert, no acute distress, afebrile, hemodynamically stable, patient is on room air, and her pulse ox is ranging from 88-92%. Patient's strep throat cultures have been negative, with blood cell count is trending down. Influenza was negative, complained of shortness of breath, no cough or congestion, patient has been treated with a combination of empiric antibiotics of Zosyn and vancomycin, we will discontinue vancomycin at this time, and will continue with oral amoxicillin. No acute complaints overnight, mentation is appropriate, no fever or chills. Objective - Vital Signs Vital signs: Vital Signs Temp 98.8 F 06/03/19 07:00 Pulse 97 06/03/19 08:00 Resp 16 06/03/19 08:00 BP 132/83 06/03/19 07:00 Pulse Ox 88 L 06/03/19 07:00 Intake & Output 06/02/19 06/03/19 06/03/19 18:59 06:59 18:59 Intake Total 925 1416 100 Output Total 600 Balance 325 1416 100 Intake: IV 675 770 100 Piperacillin-Tazobactam 3 100 100 100 .375 gm In Sodium Chloride 0.9% 100 ml @ 25 mls/hr IVPB Q8H JANAE Rx#: [id number] Sodium Chloride 0.9% 1, 75 170 000 ml @ 75 mls/hr IV . [id number] JANAE Rx#:[id number] Vancomycin 1,750 mg In 500 500 Sodium Chloride 0.9% 500 ml 500 ml @ 167 mls/hr IVPB Q24H JANAE Rx#: [id number] Oral 250 646 Output: Urine 600 Other: Voiding Method Indwelling Catheter Toilet Toilet # Voids 3 3 # Bowel Movements 1 - Exam GENERAL EXAM: Alert, pleasant, 39-year-old white female, sitting up in the chair, on room air comfortable in no apparent distress. HEAD: Normocephalic/atraumatic. EYES: Normal reaction of pupils, equal size. Conjunctiva pink, sclera white. NOSE: Clear with pink turbinates. THROAT: No erythema or exudates. Enlarged tonsils noted bilaterally NECK: No masses, no JVD, no thyroid enlargement, no adenopathy. CHEST: No chest wall deformity. Symmetrical expansion. LUNGS: Equal air entry with no crackles, wheeze, rhonchi or dullness. CVS: Regular rate and rhythm, normal S1 and S2, no gallops, no murmurs, no rubs ABDOMEN: Soft, nontender. No hepatosplenomegaly, normal bowel sounds, no guarding or rigidity. EXTREMITIES: No clubbing, no edema, no cyanosis, 2+ pulses and upper and lower extremities. MUSCULOSKELETAL: Muscle strength and tone normal. SPINE: No scoliosis or deformity SKIN: No rashes CENTRAL NERVOUS SYSTEM: Alert and oriented -3. No focal deficits, tone is normal in all 4 extremities. PSYCHIATRIC: Alert and oriented -3. Appropriate affect. Intact judgment and insight. - Labs CBC & Chem 7: 06/02/19 03:42 06/02/19 03:42 Labs: Microbiology - Last 24 Hours (Table) 05/31/19 09:50 Throat Culture - Final Throat Assessment and Plan Plan: Assessment: #1 Febrile illness with possible sepsis of unclear etiology. Within the differential include left sphenoid sinusitis, pharyngitis/tonsillitis, urinary tract infection or viral syndrome. Doubt meningitis. #2 Hypotension requiring norepinephrine and fluid resuscitation secondary to above. #3 Hyperlipidemia. #4 History of hypertension. #5 Prediabetes. Plan: Patient is stable, no acute complaints, no shortness of breath, no chest pain, cultures are negative thus far, we will discontinue the vancomycin, we will switch to Zosyn to oral Augmentin, increase activity as tolerated, from pulmonary perspective patient is stable for discharge home today. I performed a history & physical examination of the patient and discussed their management with my nurse practitioner, Jinny Chen. I reviewed the nurse practitioner's note and agree with the documented findings and plan of care. Lung sounds are positive for clear lung sounds throughout the lung yates. The findings and the impression was discussed with the patient. I attest to the documentation by the nurse practitioner. Time with Patient: Less than 30
[2019-06-03 15:38] VITALS: BP 149/94; PULSE 92; TEMP 99.2
[2019-06-03] MEDS ORDERED: VANCOMYCIN TROUGH DUE 1 EACH MISC MISCELLANE ONE (16:00)
== END 2019-06-03 16:24 | disposition home or self-care (01) | DRG 871 ==
LOC: 2SICU 05-31 00:33 → 4SSUR 06-02 16:26
PROVIDERS: ADMIT Hospitalist; ATTEND Hospitalist
DX: A41.9 Sepsis, unspecified organism (principal); R65.21 Severe sepsis with septic shock; N17.9 Acute kidney failure, unspecified; Z68.41 Body mass index [BMI] 40.0-44.9, adult; J01.30 Acute sphenoidal sinusitis, unspecified; J02.9 Acute pharyngitis, unspecified; E87.6 Hypokalemia; E83.42 Hypomagnesemia; R07.89 Other chest pain; E86.0 Dehydration; R55 Syncope and collapse; E66.9 Obesity, unspecified; I10 Essential (primary) hypertension; E78.5 Hyperlipidemia, unspecified; R73.03 Prediabetes; Z79.899 Other long term (current) drug therapy
CPT/HCPCS: 71045; 80048; 81001; 83735; 84100; 84484; 85025; 87070; 87081; 87430; 87502; 93306